=== PATIENT | male | born 1990 | race Caucasian/White ===

== ENCOUNTER 2019-10-24 22:58 | Emergency (ER) | payer OTHER, SELFPAY ==
[2019-10-24 23:05] VITALS: BP 148/97; PULSE 95; RESP 19; TEMP 36.9; O2SAT 100
--- NOTE | 2019-10-24 23:15 | ED.PSYCH ---
HPI - Psych General Chief Complaint: Psychiatric Symptoms Stated Complaint: psych Time Seen by Provider: 10/24/19 23:13 Source: patient and police Limitations: no limitations History of Present Illness HPI Narrative: Pt brought in by PD after family members called concerned for his mental health, he texted his relatives regarding killing himself per [place] [employer]. Pt admits to having suicidal thoughts with plan, using a knife. Denies homicidal ideations. MD complaint: suicidal ideation and feels depressed Duration: constant Relieving factors: none Exacerbating factors: none Associated psychiatric symptoms: depression Associated symptoms: denies other symptoms If self harm: admits thoughts of self harm and has plan Related Data Home Medications Medication Instructions Recorded Confirmed No Home Medications 10/25/19 Allergies Allergy/AdvReac Type Severity Reaction Status Date / Time Penicillins Allergy Unknown RASH Verified 11/12/17 16:46 sertraline Allergy Unknown SEIZURE Unverified 11/12/17 16:46 Review of Systems Review of Systems: All systems reviewed & are unremarkable except as noted in HPI and below Constitutional: Constitutional: Denies body ache(s), Denies chills, Denies excessive sweating, Denies fatigue, Denies fever(s), Denies headache(s), Denies lethargy, Denies malaise, Denies weakness and Denies weight loss Eyes: Eyes: Denies blurry vision, Denies change in vision and Denies loss of vision ENT: Denies dizziness, Denies ear discharge, Denies headache(s), Denies lip swelling, Denies epistaxis, Denies nasal congestion, Denies neck pain, Denies throat swelling and Denies tongue swelling Cardiovascular: Cardiovascular: Denies chest pain, Denies chest pain at rest, Denies chest pain with activity, Denies diaphoresis, Denies rapid heart rate, Denies edema, Denies irregular heart rhythm, Denies lightheadedness, Denies palpitations, Denies dyspnea and Denies dyspnea on exertion Respiratory: Respiratory: Denies chest congestion, Denies cough, Denies hemoptysis, Denies dyspnea and Denies dyspnea on exertion Gastrointestinal: Gastrointestinal: Denies abdominal pain, Denies melena, Denies hematochezia, Denies diarrhea, Denies nausea, Denies vomiting and Denies hematemesis Musculoskeletal: Musculoskeletal: Denies abnormal gait, Denies deformity, Denies joint swelling, Denies limited range of motion, Denies neck pain and Denies numbness Neurologic: Denies Abnormal speech present, Denies abnormal gait, Denies confusion, Denies dizziness, Denies headache(s), Denies focal weakness, Denies loss of vision, Denies numbness, Denies Other visual disturbances, Denies Sensory deficit (Neuro) and Denies weakness Psychiatric: Psychiatric: Denies confusion, Denies auditory hallucinations and Denies homicidal ideation Endocrine: Endocrine: Denies cold intolerance, Denies excessive sweating, Denies fatigue, Denies heat intolerance and Denies palpitations Hematologic/Lymphatic: Hematologic/Lymphatic: Denies easy bleeding and Denies easy bruising Allergic/Immunologic: Allergic/Immunologic: Denies lip swelling, Denies throat swelling and Denies tongue swelling [facility] Social History Social History Gender identity (if verbalized by the patient): Male Exam Const: General: cooperative, healthy appearing, comfortable, no acute distress, well developed, alert and awake; No confusion Orientation/consciousness: oriented to person, oriented to place, oriented to time, patient oriented x3 and No confusion Limitations: no limitations HENMT: Head: normal to inspection, normocephalic and atraumatic Ears: hearing grossly normal bilaterally, TM normal on the right and TM normal on the left General nose exam: Normal external nose present, Normal nares present and No nasal discharge present Face and sinus: normal facial exam Mouth: Yes Normal oral and palatal mucosa present, Yes lip normal, Yes tongue normal and Yes oropharynx normal Thro
--- NOTE | 2019-10-24 23:30 | PC.NURSE ---
[facility] that brought patient to ED told this RN that patient sent a text message out to his girlfriend with a picture of a knife that stated you can find my body at [facility]. Patient then confirmed this text to this RN. Patient then stated I am too much of a pussy to actually kill myself. I really just did this as a cry for help and now I see how many people actually care for me.
[2019-10-24 23:43] LABS: Basophils Percent Auto 0.2 % (0.2-1.2); Eosinophils Absolute Auto 0.1 K/mm3 (0-0.3); Eosinophils Percent Auto 0.9 % (0-4.4); Hematocrit 46.1 % (42.0-52.0); Hemoglobin 16.2 g/dL (14.0-18.0); Immature Granulocyte Absolute 0.03 K/mm3 (0.00-0.031); Immature Granulocyte Percent A 0.4 % (0-0.5); Lymphocytes Percent Auto 18.8 % (18.3-44.2); Mean Corpuscular HGB Conc 35.1 g/dl (32-36); Mean Corpuscular Hemoglobin 28.6 pg (26-34); Mean Corpuscular Volume 81.4 fl (80-100); Mean Platelet Volume 9.2 fl (7.4-10.4); Monocytes Absolute Auto 0.7 K/mm3 (0.1-0.6); Monocytes Percent Auto 7.9 % (2.6-8.5); Neutrophils Absolute Auto 6.1 K/mm3 (1.3-6.7); Neutrophils Percent Auto 71.8 % (45.5-73.1); Platelet Count Result 350 k/mm3 (150-375); Red Blood Count 5.66 M/mm3 (4.6-6.20); Red Cell Distribution Width 12.2 % (11.5-14.5); White Blood Count 8.5 K/mm3 (4.5-10.0)
[2019-10-24 23:49] LABS: Add Urine Microscopic? YES; Appearance Urine Clear (Clear); Bilirubin Urine Negative (Negative); Blood Urine Negative (Negative); Color Urine Yellow (Yellow); Glucose Urine UA 3+ mg/dL (Negative); Ketones Urine Trace mg/dL (Negative); Leukocyte Esterase Ur Negative LEU/UL (Negative); Mucus Urine Rare /lpf; Nitrate Urine Negative (Negative); Protein Urine 1+ mg/dL (Negative); RBC Urine 0-2 /hpf (0-2); Specific Grav Ur 1.024 (1.001-1.035); Urobilinogen Urine Negative mg/dL (<2.0); WBC Urine 0-3 /hpf
[2019-10-24 23:59] LABS: Ethanol < 10 mg/dL (<10)
[2019-10-25 00:02] LABS: Alanine Aminotransferase 27 U/L (4-50); Albumin Level 4.7 g/dL (3.5-5.1); Alkaline Phosphatase 114 U/L (38-126); Aspartate Amino Transferase 26 U/L (17-59); Bilirubin,Total 0.7 mg/dL (0.2-1.3); Blood Urea Nitrogen 12 mg/dL (9-20); Calcium 9.9 mg/dL (8.4-10.2); Carbon Dioxide 23 mmol/L (22-30); Chloride 100 mmol/L (98-107); Estimated CRCL calculation 208 ml/min; Estimated Glomerular Filt Rate > 60; Glucose 232 mg/dL (75-110); Potassium 3.8 mmol/L (3.4-5.0); Sodium 134 mmol/L (137-145)
[2019-10-25 01:12] LABS: Amphetamine Screen Urine Negative (Negative); Barbiturate Screen Urine Negative (Negative); Benzodiazepines Screen Urine Negative (Negative); Cannabinoid Screen Urine Negative (Negative); Cocaine Screen Urine Negative (Negative); Methadone Screen Urine Negative (Negative); Phencyclidine Screen Urine Negative (Negative)
[2019-10-25 01:14] LABS: Opiate Screen Urine Negative (Negative)
--- NOTE | 2019-10-25 01:41 | PC.NURSE ---
CALLED [facility] [phone] THEY WILL SEND SOMEONE OUT TO EVALUATE PT
--- NOTE | 2019-10-25 02:25 | PC.NURSE ---
[facility] IS HERE
[2019-10-25 03:20] VITALS: BP 135/79; PULSE 73; RESP 14; TEMP 36.4; O2SAT 100
== END 2019-10-25 03:24 | disposition home or self-care (01) ==
PROVIDERS: Emergency Provider Emergency Medicine; PCP Family Medicine
DX: R45.851 Suicidal ideations (principal)
CPT/HCPCS: 36415; 80053; 80307; 81001; 84443; 85025; 99284

== ENCOUNTER 2021-01-05 13:22 | Emergency (ER) | payer OTHER, SELFPAY ==
[2021-01-05 13:29] VITALS: BP 138/92; PULSE 93; RESP 16; TEMP 36; O2SAT 100
[2021-01-05 13:30] VITALS: BP 138/92; PULSE 93; RESP 16; TEMP 36; O2SAT 100
--- NOTE | 2021-01-05 13:31 | ED.URI ---
HPI - URI/Sore Throat General Chief Complaint: Upper Respiratory Infection Stated Complaint: COUGH/SOB Time Seen by Provider: 01/05/21 13:28 Source: patient and RN notes reviewed History of Present Illness HPI Narrative: Patient is a 30-year-old male who presents the urgent care with complaints of a cough for the last 3 days. Patient states he feels like he has bronchitis . Patient denies of any Covid exposure and states that he has been vaccinated. Denies of any chest pain, shortness of breath, fever, nausea, vomiting. Patient states he has been using DayQuil for his symptoms. No other acute complaints. No acute distress noted. Patient aware of the plan of care. Some parts of this dictation were generated by voice recognition software and may contain typographical and/or grammatical inaccuracies. Related Data Allergies Allergy/AdvReac Type Severity Reaction Status Date / Time Penicillins Allergy Unknown RASH Verified 11/12/17 16:46 sertraline Allergy Unknown SEIZURE Unverified 11/12/17 16:46 Review of Systems Review of Systems: Narrative: CONSTITUTIONAL: Denies fever, chills, or sweats. EYES: Denies visual changes, redness, or discharge. ENT: Denies rhinorrhea, congestion, sore throat, or otalgia. CARDIOVASCULAR: Denies chest pain, palpitations, or edema. RESPIRATORY: Reports of nonproductive cough without dyspnea GASTROINTESTINAL: Denies abdominal pain, nausea, vomiting, or diarrhea. GENITOURINARY: Denies dysuria or hematuria. SKIN: Denies rash or itching. MUSCULOSKELETAL: Denies back pain, joint pain, or myalgia. NEUROLOGIC: Denies headache, numbness, or weakness. All other systems reviewed are negative, except as documented in HPI. [facility] Social History Social History Gender identity (if verbalized by the patient): Male Comments At the time of my signature, I reviewed and agree with the nursing past medical, surgical, social, and family history. There is no relevant family history pertinent to the patient complaint. Exam Narrative: Exam Narrative: GENERAL: This is a well-nourished, well-developed patient, in no apparent distress. HEAD: normocephalic, atraumatic. EYES: PERRL. Sclera clear/white. Vision is grossly intact. EARS: External ears normal, auditory canals clear and without drainage, TMs normal without perforation. Hearing grossly intact. NOSE: External nose normal with no obvious nasal discharge, nares without redness, no rhinorrhea. THROAT: Mucous membranes moist, posterior pharynx clear. Mild postnasal drainage NECK: Neck supple, non-tender without lymphadenopathy CARDIOVASCULAR: Regular rate and rhythm without murmurs, gallops, or rubs. RESPIRATORY: Clear to auscultation. Breath sounds equal bilaterally. No wheezes, rales, or rhonchi. SKIN: warm, intact with no suspicious lesions or rash, good texture and turgor. NEURO: awake, alert, and oriented to person, place and time. There were no obvious focal neurologic abnormalities. EXTREMITIES: No clubbing, cyanosis, or edema. Course Vital Signs Vital signs: Vital Signs Temperature 96.8 F L 01/05/21 13:29 Pulse Rate 93 01/05/21 13:29 Respiratory Rate 16 01/05/21 13:29 Blood Pressure 138/92 H 01/05/21 13:29 Pulse Oximetry 100 01/05/21 13:29 Temperature 96.8 F L 01/05/21 13:30 Pulse Rate 93 01/05/21 13:30 Respiratory Rate 16 01/05/21 13:30 Blood Pressure 138/92 H 01/05/21 13:30 Pulse Oximetry 100 01/05/21 13:30 Reviewed-patient is informed that they may have pre-hypertension or hypertension based on a blood pressure reading in the department. I recommend the patient call the primary care provider listed on their discharge instructions or a physician of their choice this week to arrange follow-up for further evaluation of possible pre-hypertension or hypertension. MDM - URI/Sore Throat MDM Narrative Medical decision making narrative: Advised the patient to complete the steroid regimen as prescribed. Use an [id number]
== END 2021-01-05 13:37 | disposition home or self-care (01) ==
PROVIDERS: Emergency Provider Nurse Practitioner Family
DX: R05 Cough (principal); J06.9 Acute upper respiratory infection, unspecified
CPT/HCPCS: 99213; G0463

== ENCOUNTER 2021-06-15 07:21 | Outpatient (CLI) | payer OTHER, SELFPAY ==
[2021-06-15 08:02] LABS: Hemoglobin A1C 9.8 % (<5.7)
== END 2021-06-15 07:22 | disposition home or self-care (01) ==
LOC: ANHLAB 07:22
PROVIDERS: PCP Family Medicine; Visit Provider Physician Assistant
DX: R73.09 Other abnormal glucose (principal)
CPT/HCPCS: 36415; 83036

== ENCOUNTER 2022-07-27 02:31 | Emergency (ER) | payer OTHER, SELFPAY ==
[2022-07-27 02:32] VITALS: BP 150/99; PULSE 97; RESP 16; TEMP 36.9; O2SAT 100
[2022-07-27 03:07] LABS: Appearance Urine Clear (Clear); Bilirubin Urine Negative (Negative); Blood Urine Negative (Negative); Color Urine Yellow (Yellow); Glucose Urine UA 3+ mg/dL (Negative); Ketones Urine 2+ mg/dL (Negative); Leukocyte Esterase Ur Negative LEU/UL (Negative); Nitrate Urine Negative (Negative); Protein Urine Negative (Negative); Specific Grav Ur 1.015 (1.001-1.035); Urobilinogen Urine 0.2 mg/dL (<2.0); pH Urine 5.5 (5.0-9.0)
[2022-07-27 03:08] LABS: Basophils Percent Auto 0.4 % (0.2-1.2); Eosinophils Absolute Auto 0.1 K/mm3 (0-0.3); Eosinophils Percent Auto 1.2 % (0-4.4); Hematocrit 48.1 % (42.0-52.0); Hemoglobin 16.7 g/dL (14.0-18.0); Immature Granulocyte Absolute 0.04 K/mm3 (0.00-0.031); Immature Granulocyte Percent A 0.5 % (0-0.5); Lymphocytes Percent Auto 32.9 % (18.3-44.2); Mean Corpuscular HGB Conc 34.7 g/dl (32-36); Mean Corpuscular Hemoglobin 29.8 pg (26-34); Mean Corpuscular Volume 85.9 fl (80-100); Mean Platelet Volume 8.8 fl (7.4-10.4); Monocytes Absolute Auto 0.5 K/mm3 (0.1-0.6); Monocytes Percent Auto 7.1 % (2.6-8.5); Neutrophils Absolute Auto 4.4 K/mm3 (1.3-6.7); Neutrophils Percent Auto 57.9 % (45.5-73.1); Platelet Count Result 356 k/mm3 (150-375); Red Cell Distribution Width 12.4 % (11.5-14.5); White Blood Count 7.6 K/mm3 (4.5-10.0)
[2022-07-27 03:18] LABS: Ethanol 74 mg/dL (<10)
[2022-07-27 03:19] LABS: Alanine Aminotransferase 32 U/L (6-50); Albumin Level 4.8 g/dL (3.5-5.1); Alkaline Phosphatase 90 U/L (38-126); Anion Gap 12 mmol/L (8-16); Aspartate Amino Transferase 22 U/L (17-59); Bacteria Urine Trace /hpf; Bilirubin,Total 0.9 mg/dL (0.2-1.3); Blood Urea Nitrogen 17 mg/dL (9-20); Calcium 8.7 mg/dL (8.4-10.2); Carbon Dioxide 25 mmol/L (22-30); Chloride 100 mmol/L (98-107); Estimated CRCL calculation 166 ml/min; Estimated Glomerular Filt Rate > 60; Glucose 273 mg/dL (65-110); Sodium 137 mmol/L (137-145); WBC Urine 0-3 /hpf
[2022-07-27 03:22] LABS: Add Urine Microscopic? YES
[2022-07-27 03:43] LABS: Amphetamine Screen Urine Negative (Negative); Barbiturate Screen Urine Negative (Negative); Benzodiazepines Screen Urine Negative (Negative); Cannabinoid Screen Urine Negative (Negative); Cocaine Screen Urine Negative (Negative); Methadone Screen Urine Negative (Negative); Opiate Screen Urine Negative (Negative); Phencyclidine Screen Urine Negative (Negative)
--- NOTE | 2022-07-27 06:10 | ED.GENADULT ---
HPI - General Adult General Chief complaint: Psychiatric Symptoms Stated complaint: si Time Seen by Provider: 07/27/22 03:07 History of Present Illness HPI narrative: This is a 31-year-old male presenting to ED in police custody for a fit for confinement evaluation. patient said that he is depressed as his girlfriend broke up with him a week ago. They were having custody battles. He thought that he would commit suicide by transmitter engineer in charge. He told his neighbors that he murdered his family's they have called police. When police arrived he charge them with a knife. He was then tased. There was then restrained and brought to the emergency department for fit for confinement evaluation. At this time the patient denies suicidal or homicidal ideation. He admits to being depressed but he does not know it came over him. He denies auditory or visual hallucinations. Denies use of drugs or alcohol today. Patient does have a history of multiple suicide attempts the latest being an overdose attempt week ago. The patient has some pain from small abrasion on his stomach and some elbow pain from where he fell. He denies any other complaints. Related Data Allergies Allergy/AdvReac Type Severity Reaction Status Date / Time Penicillins Allergy Unknown RASH Verified 02/27/22 10:59 sertraline Allergy Unknown SEIZURE Verified 02/27/22 10:59 [facility] Past Medical History Medical History Anxiety PTSD (post-traumatic stress disorder) Seasonal rhinitis Type 2 diabetes mellitus Family History Family History Mother Diabetes mellitus Social History Social History Smoking status: Former smoker Alcohol intake: never Substance use: never Substance use type: does not use Gender identity (if verbalized by the patient): Male Exam Narrative: APPEARANCE: No apparent distress. Patient is A&O x3, patient can hold a normal conversation Head: atraumatic. EYES: EOMI, NOSE: Atraumatic NECK: Trachea midline RESPIRATORY: No increased rate of breathing, clear to auscultation CARDIOVASCULAR: RRR, no peripheral edema ABDOMINAL: Non-distended, nontender no guarding rebound MUSCULOSKELETAl: No obvious deformities NEURO: Alert. Moving 4/4 extremities SKIN:: small abrasion just below the bellybutton PSYCHIATRIC: Normal affect Course Vital Signs Vital signs: Vital Signs Temperature 98.4 F 07/27/22 02:32 Pulse Rate 97 07/27/22 02:32 Respiratory Rate 16 07/27/22 02:32 Blood Pressure 150/99 H 07/27/22 02:32 Pulse Oximetry 100 07/27/22 02:32 Oxygen Delivery Room Air 07/27/22 02:32 Temperature 98.4 F 07/27/22 02:32 Pulse Rate 97 07/27/22 02:32 Respiratory Rate 16 07/27/22 02:32 Blood Pressure 150/99 H 07/27/22 02:32 Pulse Oximetry 100 07/27/22 02:32 Oxygen Delivery Room Air 07/27/22 02:32 Medical Decision Making MDM Narrative Medical decision making narrative: -Presentation: this is a 31-year-old male presenting for a fit confer confinement evaluation after an attempted suicide. -DDX includes but is not limited to: Depression, suicidal ideation -Co-morbidities complicating care: depression, PTSD -Social determinants of health: patient is from his and is in a custody nelson -External Chart Review: none -Hx from independent Sources: police -Discussion of Management/Consultants: none -Independent interpretation of studies: lab work, urinalysis urine drug screen were negative. Alcohol was 74. Patient is not clinically intoxicated at time of my Evaluation Dx tests considered but not ordered: none -Procedures: none -Interventions: Tdap -Shared decision making / Disposition: at this time patient has no physical ailments that will prevent him from confinement. After speaking with police they do have mental health pro
[2022-07-27] MEDS: TETANUS,DIPHTHERIA,AC PERTUSSIS ADULT (0.5 ML) BOOSTRIX IM (06:18)
== END 2022-07-27 06:32 ==
PROVIDERS: Physician Assistant; Emergency Provider Emergency Medicine; PCP Family Medicine
DX: F32.A Depression, unspecified (principal); S30.811A Abrasion of abdominal wall, initial encounter; Z23 Encounter for immunization; E11.9 Type 2 diabetes mellitus without complications; Z87.891 Personal history of nicotine dependence; Z79.84 Long term (current) use of oral hypoglycemic drugs; Y35.833A Legal intervention involving a conducted energy device, suspect injured, initial encounter
CPT/HCPCS: 36415; 80053; 80307; 81001; 84443; 85025; 90471; 90715; 99283

== ENCOUNTER 2023-01-01 11:26 | Outpatient (CLI) | payer OTHER, SELFPAY ==
[2023-01-01 12:37] LABS: Alanine Aminotransferase 30 U/L (6-50); Albumin Level 4.6 g/dL (3.5-5.1); Alkaline Phosphatase 113 U/L (38-126); Anion Gap 6 mmol/L (8-16); Aspartate Amino Transferase 22 U/L (17-59); Bilirubin,Total 1.1 mg/dL (0.2-1.3); Blood Urea Nitrogen 19 mg/dL (9-20); Calcium 9.1 mg/dL (8.4-10.2); Carbon Dioxide 30 mmol/L (22-30); Chloride 101 mmol/L (98-107); Estimated Glomerular Filt Rate > 60; Glucose 269 mg/dL (65-110); Potassium 4.1 mmol/L (3.4-5.0); Sodium 137 mmol/L (137-145)
[2023-01-01 13:04] LABS: Creatinine Urine 221.4 mg/dL
[2023-01-01 13:07] LABS: Hemoglobin A1C 11.2 % (<5.7)
[2023-01-01 13:09] LABS: MALB Creatinine Ratio 12.9 mg/g (0-30); Microalbumin Urine Random 28.5 mg/L (0-16.7)
== END 2023-01-01 11:27 | disposition home or self-care (01) ==
LOC: ANHLAB 11:28
PROVIDERS: PCP Family Medicine; Visit Provider Physician Assistant Medical
DX: E78.2 Mixed hyperlipidemia (principal); E11.9 Type 2 diabetes mellitus without complications
CPT/HCPCS: 36415; 80053; 82043; 83036

== ENCOUNTER 2023-11-14 16:32 | Emergency (ER) | payer OTHER, SELFPAY ==
--- NOTE | ~2023-11-14 | CT_ITS ---
EXAMINATION: CT abdomen pelvis wo con DATE: 11/14/2023 16:58 INDICATION: sudden onset LLQ pain with nausea/vomiting TECHNIQUE: Computed tomography (CT) of the abdomen and pelvis was performed without intravenous contr ast. Automated exposure control and iterative reconstruction technique were employed. The dose-length product was 1050.41 mGy-cm. COMPARISON: None. FINDINGS: Lower thorax: Unremarkable Liver: Normal. Biliary/Gallbladder: Gallbladder is normal. No bile duct dilation. Pancreas: No mass or duct dilation. Spleen: Normal. Adrenals:No mass. Kidneys: No suspicious mass, obstructing stone, or hydronephrosis. GI tract: Scattered mildly dilated loops of jejunum without transition point, wall thickening or infl ammatory change. Fluid-filled colon. Normal appendix. Mesentery/Peritoneum: No ascites, mass, or free air. Retroperitoneum: No mass. Pelvis: Pelvic organs are within normal limits. Soft Tissues: Soft tissues and body wall unremarkable. Bones: No acute osseous finding. IMPRESSION: Mild small bowel ileus, no transition point to suggest obstruction. Fluid-filled colon as can be seen with diarrheal illness. Reviewed, dictated and finalized at location K.
[2023-11-14 16:55] VITALS: BP 145/91; PULSE 124; RESP 21; TEMP 36.9; O2SAT 100
[2023-11-14 17:03] VITALS: PULSE 104; RESP 20; TEMP 36.9; O2SAT 100
[2023-11-14] MEDS: ONDANSETRON INJ 4 MG/2 ML VIAL IV PUSH (17:07)
[2023-11-14] MEDS: MORPHINE SULFATE (*CRX) 2 MG/ML INJ IV PUSH (17:07)
[2023-11-14] MEDS: LACTATED RINGERS 1,000 ML 999 ML IV CONT ×2 (17:07→18:38)
[2023-11-14 17:10] LABS: Basophils Percent Auto 0.4 % (0.2-1.2); Eosinophils Absolute Auto 0.1 K/mm3 (0-0.3); Eosinophils Percent Auto 0.6 % (0-4.4); Hematocrit 47.5 % (42.0-52.0); Hemoglobin 16.8 g/dL (14.0-18.0); Immature Granulocyte Absolute 0.04 K/mm3 (0.00-0.031); Immature Granulocyte Percent A 0.4 % (0-0.5); Lymphocytes Absolute Auto 0.69 K/mm3 (0.9-3.2); Lymphocytes Percent Auto 6.4 % (18.3-44.2); Mean Corpuscular HGB Conc 35.4 g/dl (32-36); Mean Corpuscular Hemoglobin 29.5 pg (26-34); Mean Corpuscular Volume 83.3 fl (80-100); Mean Platelet Volume 8.6 fl (7.4-10.4); Monocytes Absolute Auto 0.7 K/mm3 (0.1-0.6); Monocytes Percent Auto 6.3 % (2.6-8.5); Neutrophils Absolute Auto 9.3 K/mm3 (1.3-6.7); Neutrophils Percent Auto 85.9 % (45.5-73.1); Platelet Count Result 423 k/mm3 (150-375); White Blood Count 10.8 K/mm3 (4.5-10.0)
[2023-11-14 17:20] LABS: Alanine Aminotransferase 39 U/L (6-50); Albumin Level 4.8 g/dL (3.5-5.1); Alkaline Phosphatase 99 U/L (38-126); Anion Gap 13 mmol/L (4-12); Aspartate Amino Transferase 28 U/L (17-59); Bilirubin,Total 1.4 mg/dL (0.2-1.3); Blood Urea Nitrogen 14 mg/dL (9-20); Calcium 9.7 mg/dL (8.4-10.2); Carbon Dioxide 23 mmol/L (22-30); Chloride 104 mmol/L (98-107); Estimated CRCL calculation 164 ml/min; Estimated Glomerular Filt Rate > 60; Glucose 184 mg/dL (65-110); Lipase 40 U/L (23-300); Potassium 3.7 mmol/L (3.4-5.0); Sodium 140 mmol/L (137-145)
--- NOTE | 2023-11-14 18:03 | ED.ABDPAIN ---
HPI - Abdominal Pain General Chief Complaint: Abdominal Pain Stated Complaint: abd pain Time Seen by Provider: 11/14/23 16:35 History of Present Illness HPI narrative: Patient presenting with nausea vomiting, diarrhea, lower abdominal pain, he has similar symptoms about 2 weeks ago here and went to [place], had a CT, and they said there was nothing wrong with him. He states today was worse. Related Data Allergies Allergy/AdvReac Type Severity Reaction Status Date / Time Penicillins Allergy Unknown RASH Verified 11/14/23 17:06 sertraline Allergy Unknown SEIZURE Verified 11/14/23 17:06 amoxicillin Allergy Rash Verified 11/14/23 17:06 Review of Systems Review of Systems: All systems reviewed & are unremarkable except as noted in HPI and below PMFSH Past Medical History Medical History (Updated 11/14/23 @ 18:27 by Myra Burris MD) Alcohol abuse Anxiety PTSD (post-traumatic stress disorder) Seasonal rhinitis Type 2 diabetes mellitus Family History Family History Mother Diabetes mellitus Social History Social History Smoking status: Former smoker Alcohol intake: never Substance use: never Substance use type: does not use Lack of Transportation: No Lack of Food: Never True Current Housing: I Have Housing Concerned About Future Housing: No Difficulty Paying Gas/Electric Bills: No Difficulty Paying for Meds: No Currently Unemployed: No Education: Associate Degree Difficulty w/ Childcare or Family Care: No Living arrangements: with family Gender identity (if verbalized by the patient): Male Sexual Orientation (if Verbalized by the Patient): Straight or Heterosexual Spiritual care concerns: No Agree to blood products: Yes Exam Narrative: EXAMINATION OF ORGAN SYSTEMS/BODY AREAS: Constitutional: Vital signs per nursing GENERAL: Appears to be quite uncomfortable, actively retching HEAD: Normal with no signs of head trauma. EYES: EOMI, conjunctiva normal ENT: Hearing grossly intact LUNGS: Nonlabored breathing. HEART: [Regular rate and rhythm] ABD: [Soft], minimally [tender to palpation] lower abdomen EXT: Normal range of motion SKIN: [No rashes or lesions.] NEURO: [Alert and oriented x 3. No gross focal sensory or strength deficits.] Course Vital Signs Vital signs: Vital Signs Temperature 98.4 F 05/18/24 16:55 Pulse Rate 124 H 11/14/23 16:55 Respiratory Rate 21 H 11/14/23 16:55 Blood Pressure 145/91 H 11/14/23 16:55 Pulse Oximetry 100 11/14/23 16:55 Temperature 98.4 F 11/14/23 17:03 Pulse Rate 100 11/14/23 18:41 Respiratory Rate 18 11/14/23 18:41 Blood Pressure 131/68 11/14/23 18:41 Pulse Oximetry 98 11/14/23 18:41 Oxygen Delivery Room Air 11/14/23 17:03 MDM - Abdominal Pain MDM Narrative Medical decision making narrative: Electronic medical record was reviewed. Patient presented to the ED with complaint of [abdominal pain and vomiting and diarrhea]. Vitals [were within acceptable limits]. Physical exam revealed some tenderness to lower abdomen, very uncomfortable patient was actively retching. Based on the patient's history and physical exam, my differential includes but is not limited to [gastritis, gastroenteritis, UTI, appendicitis]. [IV access was established by nursing staff. Patient was given zofran, morphine, IV fluids]. CBC, BMP, lipase, LFTs, bilirubin and alk phos were obtained. Labs were pertinent for ketones in urine consistent with dehydration. [Decision was made to obtain a CT-abdomen to evaluate for acute abdominal process. CT-abdomen per radiology interpretation is unremarkable for acute intra-abdominal process, no signs of hydronephrosis, cholecystitis, appendicitis.] On reevaluation, the patient states that they are feeling better but he still is having diarrhea, slightly blood-streaked
[2023-11-14 18:13] LABS: Appearance Urine Clear (Clear); Bilirubin Urine Negative (Negative); Blood Urine Negative (Negative); Color Urine Yellow (Yellow); Glucose Urine UA 3+ mg/dL (Negative); Ketones Urine 4+ mg/dL (Negative); Leukocyte Esterase Ur Negative LEU/UL (Negative); Nitrate Urine Negative (Negative); Protein Urine Negative (Negative); Urobilinogen Urine 0.2 mg/dL (<2.0); pH Urine 5.5 (5.0-9.0)
[2023-11-14 18:19] LABS: Add Urine Microscopic? NO; Specific Grav Ur 1.056 (1.001-1.035)
[2023-11-14] MEDS: DICYCLOMINE HCL 10 MG CAPSULE 20 MG PO (18:38)
[2023-11-14] MEDS: BISMUTH SUBSALICYLATE 262 MG CHEWABLE TABLET 524 MG PO (18:38)
[2023-11-14 18:41] VITALS: BP 131/68; PULSE 100; RESP 18; O2SAT 98
[2023-11-14] MEDS: LOPERAMIDE HCL 2 MG CAPSULE 4 MG PO (18:56)
[2023-11-14 19:21] VITALS: BP 135/95; PULSE 99; RESP 16; O2SAT 97
== END 2023-11-14 19:55 | disposition home or self-care (01) ==
PROVIDERS: Physician Assistant; Emergency Provider Emergency Medicine; PCP Family Medicine
DX: R11.2 Nausea with vomiting, unspecified (principal); R10.30 Lower abdominal pain, unspecified; R19.7 Diarrhea, unspecified; F41.9 Anxiety disorder, unspecified; E11.9 Type 2 diabetes mellitus without complications
CPT/HCPCS: 36415; 74176; 80053; 81003; 83690; 85025; 96361; 96374; 96375; 99284; A9270; J2270; J2405; J7120